=== PATIENT | male | born 2000 | race Caucasian/White ===

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

== ENCOUNTER 2022-01-16 07:22 | Emergency (ER) | payer BC, SELFPAY ==
[2022-01-16 07:58] VITALS: BP 126/85; PULSE 77; RESP 20; TEMP 36.8; O2SAT 100; BMI 23.1
--- NOTE | 2022-01-16 08:02 | US_ITS ---
FINAL REPORT TECHNIQUE: Ultrasound images of the testicles were obtained bilaterally. Color Doppler images were obtained. CLINICAL HISTORY: sudden right testicle pain. r/o torsion--pt has a bump om base of penis FINDINGS: The testicles are normal in size and echotexture bilaterally. Arterial flow is identified bilaterally. There is a right epididymal cyst measuring 5 mm. A complex, hypoechoic focus is seen at the area of interest measuring 5 mm of uncertain significance. IMPRESSION: 5 mm right epididymal cyst. 5 mm, complex hypoechoic focus at base of penis, of uncertain significance. Reviewed, Interpreted and Dictated by Avery Ibarra MD Transcribed by Isatu Carrilol Authenticated and [facility]
[2022-01-16 08:15] LABS: Microscopic, Urine URINE MICROSCOPIC (MICROSCOPIC)
[2022-01-16 08:16] LABS: Appearance,Urine CLEAR (Clear); Bilirubin,Urine Negative (Negative); Blood, Urine 1+ (Negative); Color,Urine YELLOW (Yellow); Glucose,Urine (UA) Negative (Negative); Ketones,Urine Negative (Negative); Leukocyte Esterase,Urine Negative (Negative); Nitrate,Urine Negative (Negative); PH,Urine 5.5 (5.0-8.5); Protein,Urine Negative (Negative); Specific Gravity, Urine >= 1.030 (1.005-1.030); Urobilinogen,Urine 0.2 EU/dl (0.2)
[2022-01-16 08:28] LABS: Bacteria,Urine Trace /lpf; RBC,Urine Occasional #/hpf (0-3); Squamous Epithelial Cell,Urine Occasional #/hpf (0-5)
--- NOTE | 2022-01-16 08:41 | PC.NURSE ---
REPORT GIVEN TO DR FOSS REGARDING US
[2022-01-16 08:45] VITALS: BP 119/85; PULSE 78; RESP 17; TEMP 36.8; O2SAT 98
--- NOTE | 2022-01-16 09:12 | HMH.EDGENADL ---
Discharge Plan Disposition Patient Disposition: Home, Self-Care Condition: Good Prescriptions Prescriptions: New doxycycline hyclate 100 mg capsule 100 mg PO BID 14 Days Qty: 28 0RF hydrocodone-acetaminophen 5-325 mg tablet 1 tab PO Q4H PRN (Reason: pain) Qty: 7 0RF doxycycline hyclate 100 mg tablet 100 mg PO BID 14 Days Qty: 28 0RF No Action ibuprofen [Advil] 100 mg tablet 200 mg PO ONCE cephalexin [Keflex] 500 mg capsule 500 mg PO QDAY amoxicillin 500 MG capsule 500 mg PO BID Qty: 20 0RF Referrals Follow up/Referrals: Provider,Referral, MD [Primary Care Provider] - See instructions Activity Restrictions/Add. Instructions Additional Instructions/Restrictions: Apply warm compresses to the affected area 5-6 times daily. Rest. No work for the next 3 days. Clinical Impressions Clinical Impression: Folliculitis Stand Alone Forms Stand Alone Forms: Work/School Release Instructions Patient Instructions: DI for Urinary Tract Infection (UTI), DI for Urinary Tract Infection in Children Discharge ED Provider: Alex Cox General Adult HPI General Chief complaint: Urogenital-Male Stated complaint: Having Gentaltive problems Time Seen by Provider: 01/16/22 09:00 Mode of Arrival: Ambulatory Source of Information: Patient Limitations: No Limitations Description of Symptoms (Recalled from ER Triage Doc. by RN): pt c/o right testicular pain. pt reports he was walking at work and had a sudden onset of testicular pain. pt reports he has a knot on the right testicle. pt reports the pain is localized. History of Present Illness HPI narrative: Patient presents with pain and swelling to the shaft of the penis that began earlier this morning. He describes the pain as moderate to severe and without exacerbating or alleviating factors. He denies fever he denies drainage from the penis. He denies similar symptoms. Related Data Home Medications Medication Instructions Recorded Confirmed cephalexin 500 mg capsule (Keflex) 500 mg PO QDAY 03/22/17 ibuprofen 100 mg tablet (Advil) 200 mg PO ONCE 03/22/17 Previous Rx's Medication Instructions Recorded amoxicillin 500 mg capsule 500 mg PO BID #20 caps 03/26/17 doxycycline hyclate 100 mg capsule 100 mg PO BID 14 days #28 caps 01/16/22 doxycycline hyclate 100 mg tablet 100 mg PO BID 14 days #28 tabs 01/16/22 hydrocodone 5 mg-acetaminophen 325 1 tab PO Q4H PRN pain #7 tabs 01/16/22 mg tablet Allergies Allergy/AdvReac Type Severity Reaction Status Date / Time No Known Allergies [facility]26[facility]17 [facility] History Smoking Status: Never smoker alcohol intake: never counseling provided: none current occupational status: employed Travel in the last 8 weeks: None ROS Obtained: Yes All systems reviewed & no additional complaints except as documented Constitutional Constitutional: Reports system reviewed and no additional complaints, except as documented Physical Exam General General appearance: alert and in no apparent distress Head Head exam: atraumatic Eye Eye exam: Present normal appearance ENT ENT exam: Present normal exam Neck Neck exam: Present normal inspection Chest Chest inspection: Present normal inspection Respiratory Respiratory exam: Present normal lung sounds bilaterally Cardiovascular Cardiovascular exam: Present regular rate and normal rhythm Abdominal Exam Abdominal exam: Present soft; Absent tenderness exam: Present other (To the shaft of the penis there is a 3 mm raised lesion on an erythematous base that is approximately 1 cm diameter. Lesion is mildly to moderately tender there is no fluctuance. There is no active drainage at this time. Scrotum and testicular exams unremarkable and there are no appreciable herni) Extremities Exam Extremities exam: Present normal inspection Back Exam Back exam: Present normal inspection Neurological Exam Neurological
[2022-01-16 09:20] VITALS: BP 124/77; PULSE 80; RESP 20; TEMP 36.8; O2SAT 99
== END 2022-01-16 09:21 | disposition home or self-care (01) ==
PROVIDERS: Emergency Provider Emergency Medicine
DX: N50.811 Right testicular pain (principal); N48.89 Other specified disorders of penis; L73.9 Follicular disorder, unspecified; F41.9 Anxiety disorder, unspecified; Z79.1 Long term (current) use of non-steroidal anti-inflammatories (NSAID); Z79.51 Long term (current) use of inhaled steroids; Z79.899 Other long term (current) drug therapy
CPT/HCPCS: 76870; 81001; 99284

== ENCOUNTER 2022-01-24 09:47 | Emergency (ER) | payer BC, SELFPAY ==
[2022-01-24 09:50] VITALS: BP 129/71; PULSE 67; RESP 16; TEMP 37.1; O2SAT 98; BMI 25.0
[2022-01-24 10:00] VITALS: BP 129/71; PULSE 67; RESP 16; TEMP 37.1; O2SAT 98; BMI 24.8
--- NOTE | 2022-01-24 10:25 | EXP.UTC ---
Discharge Plan Disposition Patient Disposition: Home, Self-Care Condition: Good Prescriptions Prescriptions: New cefdinir 300 mg capsule 300 mg PO BID Qty: 20 0RF methylprednisolone [Medrol (Adriano)] 4 mg tablets,dose pack See Rx Instructions .Route .COMPLEX 6 Days Qty: 21 0RF Rx Instructions: taper pack; No Action ibuprofen [Advil] 100 mg tablet 200 mg PO ONCE cephalexin [Keflex] 500 mg capsule 500 mg PO QDAY amoxicillin 500 MG capsule 500 mg PO BID Qty: 20 0RF doxycycline hyclate 100 mg capsule 100 mg PO BID 14 Days Qty: 28 0RF hydrocodone-acetaminophen 5-325 mg tablet 1 tab PO Q4H PRN (Reason: pain) Qty: 7 0RF doxycycline hyclate 100 mg tablet 100 mg PO BID 14 Days Qty: 28 0RF Referrals Follow up/Referrals: Provider,Referral, MD [Primary Care Provider] - See instructions Activity Restrictions/Add. Instructions Additional Instructions/Restrictions: *Monitor Temp, Over the counter Motrin or Tylenol as directed/as needed Tylenol every 4 hours and Motrin every 6 hours (as long as your family doctor has told you that you can take it) for fever or pain. and straight to ER if unable to lower temp less than 101.0 after medication given *Warm salt water gargles may help to soothe the throat *Throat Lozenges? *Warm fluids like tea with honey may help to soothe the throat? *Sleep elevated *Humidifier/Vaporizer *If you did not take Penicillin shot or was unable to, start taking antibiotic immediately and make sure that you take it for the FULL length of time although you should start to feel better in 24-48 hours *change toothbrush and toothpaste 24-48 hours after starting to take antibiotics so you do not reinfect yourself Monitor Temp. Tylenol and/or Ibuprofen as needed. ER if fever is no less than 101 despite alternating Tylenol and Ibuprofen * Encourage fluids, water, Gatorade, powerade, pedialyte if /toddler/or child *Cold fluids, popsicles and ice cream may feel good on his throat Follow up IMMEDIATELY for new or worsening symptoms or no Noticeable improvement over the next 48-72 hours. 911 for difficulty breathing or swallowing start oral steriods tomorrow for itching but antibitoics for the strep throat the rash should clear once the strep infection is treated Make sure to finish your antibiotics Clinical Impressions Clinical Impression: Strep throat Instructions Patient Instructions: Strep Throat, DI for Strep Throat Discharge ED Provider: Dianne Hurt [facility] [place] HPI General Stated complaint: rash on Rt side, back, and Rt arm Mode of Arrival: Ambulatory Source of Information: Patient Limitations: No Limitations Time Seen by Provider: 01/24/22 10:25 Description of Symptoms (Recalled from Triage Doc. by RN): Pt reports rash that began on R side of abd/rib area that began yesterday afternoon, pt reports rash has now spread to back. Pt report rash itches constantly. Pt reports rash hartley when it is touches. Rash is red in color, fine raised areas. 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
[2022-01-24 10:40] LABS: UTC Strep Screen (Rapid) Positive (Negative)
[2022-01-24 10:52] VITALS: BP 129/71; PULSE 67; RESP 16; TEMP 37.1; O2SAT 98
== END 2022-01-24 11:16 | disposition home or self-care (01) ==
PROVIDERS: Emergency Provider Nurse Practitioner
DX: J02.0 Streptococcal pharyngitis (principal)
CPT/HCPCS: 99212; 87880

== ENCOUNTER 2022-03-01 18:34 | Emergency (ER) | payer BC, SELFPAY ==
[2022-03-01 18:53] VITALS: BP 147/85; PULSE 136; RESP 18; TEMP 37.2; O2SAT 95; BMI 35.4
[2022-03-01 19:55] VITALS: BP 126/74; PULSE 123; RESP 16; TEMP 37.4; O2SAT 99; BMI 20.7
--- NOTE | 2022-03-01 20:21 | EXP.UTC ---
Discharge Plan Disposition Patient Disposition: Home, Self-Care Condition: Good Prescriptions Prescriptions: New wbhqkytuccrefui-opwxubiih-UY [Bromfed DM] 2-30-10 mg/5 mL Syrup 10 ml PO Q4H PRN (Reason: Cough) Qty: 240 0RF ibuprofen 600 mg tablet 600 mg PO Q6HP PRN (Reason: Moderate Pain) Qty: 20 0RF ondansetron 4 mg tablet,disintegrating 4 mg PO Q8H PRN (Reason: nausea and vomiting) Qty: 10 0RF No Action ibuprofen [Advil] 100 mg tablet 200 mg PO ONCE cephalexin [Keflex] 500 mg capsule 500 mg PO QDAY amoxicillin 500 MG capsule 500 mg PO BID Qty: 20 0RF doxycycline hyclate 100 mg capsule 100 mg PO BID 14 Days Qty: 28 0RF hydrocodone-acetaminophen 5-325 mg tablet 1 tab PO Q4H PRN (Reason: pain) Qty: 7 0RF doxycycline hyclate 100 mg tablet 100 mg PO BID 14 Days Qty: 28 0RF cefdinir 300 mg capsule 300 mg PO BID Qty: 20 0RF methylprednisolone [Medrol (Adriano)] 4 mg tablets,dose pack See Rx Instructions .Route .COMPLEX 6 Days Qty: 21 0RF Rx Instructions: taper pack; Referrals Follow up/Referrals: Provider,Referral, MD [Primary Care Provider] - See instructions Activity Restrictions/Add. Instructions Additional Instructions/Restrictions: *Monitor Temp, Over the counter Motrin or Tylenol as directed/as needed Tylenol every 4 hours and Motrin every 6 hours (as long as your family doctor has told you that you can take it) for fever or pain. and straight to ER if unable to lower temp less than 101.0 after medication given *Warm salt water gargles may help to soothe the throat *Throat Lozenges? *Warm fluids like tea with honey may help to soothe the throat? *Sleep elevated *Humidifier/Vaporizer *Bromfed may cause drowsiness. Know how it effects you (your child) before driving, caring for small child, or sending your child to school. Not other antihistamines/allergy medications while taking bromfed Follow up IMMEDIATELY for new or worsening symptoms or no Noticeable improvement over the next 48-72 hours. 911 for difficulty breathing or swallowing You were tested for today for COVID19 your test result should be back in the next 24-48 hours, you may check your Results on the [facility] My Health Portal Clinical Impressions Clinical Impression: Viral syndrome Stand Alone Forms Stand Alone Forms: Work/School Release Instructions Patient Instructions: DI for Fever (Symptom) -- Adult, DI for Viral Syndrome, Nausea and Vomiting-Adult, Diarrhea Discharge ED [place] [facility] [place] General Stated complaint: BODY ACHES, NA, cant keepanything down Mode of Arrival: Ambulatory Source of Information: Patient Limitations: No Limitations Time Seen by Provider: 03/01/22 20:21 Description of Symptoms (Recalled from Triage Doc. by RN): PATIENT C/O VOMITING, DIARRHEA, CHILLS, BODY ACHES, HEADACHE, NAUSEA AND SNEEZING HEENT Symptoms (Recalled from RN notes): Yes Resp Symptoms (Recalled from RN notes): No Skin Symptoms (Recalled from RN notes): No MS Symptoms (Recalled from RN notes): No Functional Status (Recalled from RN notes): WNL History of Present Illness Provider Complaint: Patient states that he was recently around his brother that has the flu States that he has been having fever, chills, bodyaches, nausea/vomiting/diarrhea and sneezing States that feels like he may have the flu Related Data Home Medications Medication Instructions Recorded Confirmed cephalexin 500 mg capsule (Keflex) 500 mg PO QDAY 03/22/17 ibuprofen 100 mg tablet (Advil) 200 mg PO ONCE 03/22/17 Previous Rx's Medication Instructions Recorded amoxicillin 500 mg capsule 500 mg PO BID #20 caps 03/26/17 doxycycline hyclate 100 mg capsule 100 mg PO BID 14 days #28 caps 01/16/22 doxycycline hyclate 100 mg tablet 100 mg PO BID 14 days #28 tabs 01/16/22 hydrocodone 5 mg-acetaminophen 325 1 tab PO Q4H PRN pain #7 tabs 01/16/22 mg tablet cefdinir 300 mg capsu
[2022-03-01 20:38] VITALS: BP 126/74; PULSE 123; RESP 16; TEMP 37.4; O2SAT 99
[2022-03-02 18:49] LABS: UTC Influenza A Antigen Negative (Negative); UTC Influenza B Antigen Negative (Negative)
== END 2022-03-01 20:50 | disposition home or self-care (01) ==
LOC: ER 18:54 → UTC 18:57
PROVIDERS: Emergency Provider Nurse Practitioner
DX: R52 Pain, unspecified (principal); R11.2 Nausea with vomiting, unspecified; R51.9 Headache, unspecified; B34.9 Viral infection, unspecified
CPT/HCPCS: 87804; 99212; G0463

== ENCOUNTER 2022-04-06 12:39 | Emergency (ER) | payer BC, SELFPAY ==
--- NOTE | 2022-04-06 13:13 | EXP.UTC ---
Discharge Plan Disposition Patient Disposition: Home, Self-Care Condition: Good Prescriptions Prescriptions: New methylprednisolone 4 mg Tablets,Dose Pack 4 mg PO DIRECTED Qty: 21 0RF hzxjvhxmgkqfzus-lkbfpanst-RK [Bromfed DM] 2-30-10 mg/5 mL Syrup 5 ml PO Q6H PRN (Reason: Cough) Qty: 240 0RF amoxicillin-pot clavulanate 875-125 mg Tablet 1 tab PO Q12H Qty: 20 0RF No Action ibuprofen [Advil] 100 mg tablet 200 mg PO ONCE cephalexin [Keflex] 500 mg capsule 500 mg PO QDAY amoxicillin 500 MG capsule 500 mg PO BID Qty: 20 0RF doxycycline hyclate 100 mg capsule 100 mg PO BID 14 Days Qty: 28 0RF hydrocodone-acetaminophen 5-325 mg tablet 1 tab PO Q4H PRN (Reason: pain) Qty: 7 0RF doxycycline hyclate 100 mg tablet 100 mg PO BID 14 Days Qty: 28 0RF cefdinir 300 mg capsule 300 mg PO BID Qty: 20 0RF methylprednisolone [Medrol (Adriano)] 4 mg tablets,dose pack See Rx Instructions .Route .COMPLEX 6 Days Qty: 21 0RF Rx Instructions: taper pack; zwkbnzihcnzhead-yflrobzoc-PQ [Bromfed DM] 2-30-10 mg/5 mL Syrup 10 ml PO Q4H PRN (Reason: Cough) Qty: 240 0RF ibuprofen 600 mg tablet 600 mg PO Q6HP PRN (Reason: Moderate Pain) Qty: 20 0RF ondansetron 4 mg tablet,disintegrating 4 mg PO Q8H PRN (Reason: nausea and vomiting) Qty: 10 0RF Referrals Follow up/Referrals: Provider,Referral, MD [Primary Care Provider] - See instructions Activity Restrictions/Add. Instructions Additional Instructions/Restrictions: Drink plenty of fluids. Take tylenol or ibuprofen for pain or fever. Take the medications as directed. Follow up with your regular doctor. GO TO THE ER FOR ANY WORSENING SYMPTOMS Clinical Impressions Clinical Impression: Pharyngitis, Bronchitis Stand Alone Forms Stand Alone Forms: Work/School Release Instructions Patient Instructions: DI for Pharyngitis/Tonsillopharyngitis -- Adult, DI for Acute Bronchitis Discharge ED Provider: Og Dickens [facility] General Stated complaint: Wheezing in chest sore throat Time Seen by Provider: 04/06/22 13:13 History of Present Illness Provider Complaint: He states that for the past 2 days he has had a very sore throat and chest congestion. He has had some wheezing also. He does have a history of asthma. He denies shortness of breath. Related Data Home Medications Medication Instructions Recorded Confirmed cephalexin 500 mg capsule (Keflex) 500 mg PO QDAY 03/22/17 ibuprofen 100 mg tablet (Advil) 200 mg PO ONCE 03/22/17 Previous Rx's Medication Instructions Recorded amoxicillin 500 mg capsule 500 mg PO BID #20 caps 03/26/17 doxycycline hyclate 100 mg capsule 100 mg PO BID 14 days #28 caps 01/16/22 doxycycline hyclate 100 mg tablet 100 mg PO BID 14 days #28 tabs 01/16/22 hydrocodone 5 mg-acetaminophen 325 1 tab PO Q4H PRN pain #7 tabs 01/16/22 mg tablet cefdinir 300 mg capsule 300 mg PO BID #20 caps 01/24/22 methylprednisolone 4 mg tablets in See Rx Instructions .Route 01/24/22 a dose pack (Medrol (Adriano)) .COMPLEX 6 days #21 tabs gjqsrfwfcyarlsq-mswlizcdahlhsdf-SW 10 ml PO Q4H PRN Cough #240 mL 03/01/22 2 mg-30 mg-10 mg/5 mL oral syrup (Bromfed DM) ibuprofen 600 mg tablet 600 mg PO Q6HP PRN Moderate Pain 03/01/22 #20 tabs ondansetron 4 mg disintegrating 4 mg PO Q8H PRN nausea and 03/01/22 tablet vomiting #10 tabs amoxicillin 875 mg-potassium 1 tab PO Q12H #20 tabs 04/06/22 clavulanate 125 mg tablet ooalrhldtafjvcj-hgigltwwropyikh-EQ 5 ml PO Q6H PRN Cough #240 mL 04/06/22 2 mg-30 mg-10 mg/5 mL oral syrup (Bromfed DM) methylprednisolone 4 mg tablets in 4 mg PO DIRECTED #21 tabs 04/06/22 a dose pack Allergies Allergy/AdvReac Type Severity Reaction Status Date / Time No Known Allergies Allergy Verified 04/06/22 13:24 PFSH PFS Disclaimer: The information contained in this section may have been updated after the patient was seen, as this infor
[2022-04-06 13:15] VITALS: BP 141/86; PULSE 96; RESP 20; TEMP 36.8; O2SAT 97; BMI 20.9
[2022-04-06 13:34] LABS: UTC Strep Screen (Rapid) Negative (Negative)
[2022-04-06 14:23] VITALS: BP 141/86; PULSE 96; RESP 20; TEMP 36.8; O2SAT 97
== END 2022-04-06 14:22 | disposition home or self-care (01) ==
PROVIDERS: Emergency Provider Nurse Practitioner Family
DX: J40 Bronchitis, not specified as acute or chronic (principal); J02.9 Acute pharyngitis, unspecified
CPT/HCPCS: 87880; 99212; 99213; C9803; G0463; U0003; U0005

== ENCOUNTER 2022-05-13 21:11 | Emergency (ER) | payer SELFPAY ==
[2022-05-13 21:13] VITALS: BP 166/87; PULSE 78; RESP 17; TEMP 37.1; O2SAT 98; BMI 27.1
--- NOTE | 2022-05-13 21:48 | HMH.EDEAR ---
Discharge Plan Disposition Patient Disposition: Home, Self-Care Prescriptions Prescriptions: New prednisone [prednisone] 20 mg tablet 20 mg PO BID Qty: 10 0RF cephalexin [cephalexin] 500 mg capsule 500 mg PO TID Qty: 30 0RF No Action ibuprofen [Advil] 100 mg tablet 200 mg PO ONCE cephalexin [Keflex] 500 mg capsule 500 mg PO QDAY amoxicillin 500 MG capsule 500 mg PO BID Qty: 20 0RF doxycycline hyclate 100 mg capsule 100 mg PO BID 14 Days Qty: 28 0RF hydrocodone-acetaminophen 5-325 mg tablet 1 tab PO Q4H PRN (Reason: pain) Qty: 7 0RF doxycycline hyclate 100 mg tablet 100 mg PO BID 14 Days Qty: 28 0RF methylprednisolone 4 mg Tablets,Dose Pack 4 mg PO DIRECTED Qty: 21 0RF smvicvubtqtmtoh-wthscfomt-JK [Bromfed DM] 2-30-10 mg/5 mL Syrup 5 ml PO Q6H PRN (Reason: Cough) Qty: 240 0RF amoxicillin-pot clavulanate 875-125 mg Tablet 1 tab PO Q12H Qty: 20 0RF cefdinir 300 mg capsule 300 mg PO BID Qty: 20 0RF methylprednisolone [Medrol (Adriano)] 4 mg tablets,dose pack See Rx Instructions .Route .COMPLEX 6 Days Qty: 21 0RF Rx Instructions: taper pack; zyazgjicoeymbkh-nwjypycti-IP [Bromfed DM] 2-30-10 mg/5 mL Syrup 10 ml PO Q4H PRN (Reason: Cough) Qty: 240 0RF ibuprofen 600 mg tablet 600 mg PO Q6HP PRN (Reason: Moderate Pain) Qty: 20 0RF ondansetron 4 mg tablet,disintegrating 4 mg PO Q8H PRN (Reason: nausea and vomiting) Qty: 10 0RF Referrals Follow up/Referrals: Provider,Referral, MD [Primary Care Provider] - See instructions Clinical Impressions Clinical Impression: Otitis media Instructions Patient Instructions: DI for Ear Pain-Adult Discharge ED Provider: Prasanth (ED)Nick Ear HPI General Chief complaint: Ear Stated complaint: Ear Pain Time Seen by Provider: 05/13/22 21:48 Mode of Arrival: Ambulatory Source of Information: Patient and Significant Other Limitations: No Limitations Description of Symptoms (Recalled from ER Triage Doc. by RN): PT TO ED WITH LEFT EAR PAIN SINCE EARLIER TONIGHT. PT REPORTS THAT HIS EARS CLOG UP AND HE CLEARS THEM BY MAKING THEM POP MULTIPLE TIMES A DAY X 3 MONTHS BY HOLDING HIS NOSE AND BLOWING OUT UNTIL THEY POP. PT REPORTS THIS AFTERNOON HE FELT A POP AND PAIN LOUDER THAN USUAL WITH INTENSE PAIN History of Present Illness HPI Narrative: ear pain with pop and has full feeling over the last months MD Complaint: ear pain Location: left ear Duration: intermittent Severity: moderate Discharge from ear: no Associated symptoms ear: decreased hearing Treatment prior to arrival: none Related Data Home Medications Medication Instructions Recorded Confirmed cephalexin 500 mg capsule (Keflex) 500 mg PO QDAY 03/22/17 ibuprofen 100 mg tablet (Advil) 200 mg PO ONCE 03/22/17 Previous Rx's Medication Instructions Recorded amoxicillin 500 mg capsule 500 mg PO BID #20 caps 03/26/17 doxycycline hyclate 100 mg capsule 100 mg PO BID 14 days #28 caps 01/16/22 doxycycline hyclate 100 mg tablet 100 mg PO BID 14 days #28 tabs 01/16/22 hydrocodone 5 mg-acetaminophen 325 1 tab PO Q4H PRN pain #7 tabs 01/16/22 mg tablet cefdinir 300 mg capsule 300 mg PO BID #20 caps 01/24/22 methylprednisolone 4 mg tablets in See Rx Instructions .Route 01/24/22 a dose pack (Medrol (Adriano)) .COMPLEX 6 days #21 tabs qedrnzcqfveibwo-bjnsdlopsctsqur-VI 10 ml PO Q4H PRN Cough #240 mL 03/01/22 2 mg-30 mg-10 mg/5 mL oral syrup (Bromfed DM) ibuprofen 600 mg tablet 600 mg PO Q6HP PRN Moderate Pain 03/01/22 #20 tabs ondansetron 4 mg disintegrating 4 mg PO Q8H PRN nausea and 03/01/22 tablet vomiting #10 tabs amoxicillin 875 mg-potassium 1 tab PO Q12H #20 tabs 04/06/22 clavulanate 125 mg tablet clejbbqcusfwunb-xztzhnoarcdnsar-SY 5 ml PO Q6H PRN Cough #240 mL 04/06/22 2 mg-30 mg-10 mg/5 mL oral syrup (Bromfed DM) methylprednisolone 4 mg tablets in 4 mg PO DIRECTED #21 tabs 04/06/22 a dose pack cephalex
[2022-05-13 21:58] VITALS: BP 157/79; PULSE 78; RESP 17; TEMP 36.9; O2SAT 98
== END 2022-05-13 21:59 | disposition home or self-care (01) ==
PROVIDERS: Emergency Provider Emergency Medicine
DX: H66.92 Otitis media, unspecified, left ear (principal); F41.9 Anxiety disorder, unspecified
CPT/HCPCS: 99283; 99284

== ENCOUNTER 2022-05-16 15:51 | Emergency (ER) | payer SELFPAY ==
[2022-05-16 16:04] VITALS: BP 139/81; PULSE 90; RESP 14; TEMP 36.6; O2SAT 100; BMI 27.6
--- NOTE | 2022-05-16 16:16 | HMH.EDGENADL ---
Discharge Plan Disposition Patient Disposition: Home, Self-Care Condition: Good Prescriptions Prescriptions: New ondansetron 4 mg tablet,disintegrating 4 mg PO Q8H 4 Days Qty: 12 0RF No Action ibuprofen [Advil] 100 mg tablet 200 mg PO ONCE cephalexin [Keflex] 500 mg capsule 500 mg PO QDAY amoxicillin 500 MG capsule 500 mg PO BID Qty: 20 0RF doxycycline hyclate 100 mg capsule 100 mg PO BID 14 Days Qty: 28 0RF hydrocodone-acetaminophen 5-325 mg tablet 1 tab PO Q4H PRN (Reason: pain) Qty: 7 0RF doxycycline hyclate 100 mg tablet 100 mg PO BID 14 Days Qty: 28 0RF methylprednisolone 4 mg Tablets,Dose Pack 4 mg PO DIRECTED Qty: 21 0RF czbktatrhmgcmil-mofpaplgq-JF [Bromfed DM] 2-30-10 mg/5 mL Syrup 5 ml PO Q6H PRN (Reason: Cough) Qty: 240 0RF amoxicillin-pot clavulanate 875-125 mg Tablet 1 tab PO Q12H Qty: 20 0RF prednisone [prednisone] 20 mg tablet 20 mg PO BID Qty: 10 0RF cephalexin [cephalexin] 500 mg capsule 500 mg PO TID Qty: 30 0RF cefdinir 300 mg capsule 300 mg PO BID Qty: 20 0RF methylprednisolone [Medrol (Adriano)] 4 mg tablets,dose pack See Rx Instructions .Route .COMPLEX 6 Days Qty: 21 0RF Rx Instructions: taper pack; ryytnzwsmlqlyge-xdrknclyr-GG [Bromfed DM] 2-30-10 mg/5 mL Syrup 10 ml PO Q4H PRN (Reason: Cough) Qty: 240 0RF ibuprofen 600 mg tablet 600 mg PO Q6HP PRN (Reason: Moderate Pain) Qty: 20 0RF ondansetron 4 mg tablet,disintegrating 4 mg PO Q8H PRN (Reason: nausea and vomiting) Qty: 10 0RF Clinical Impressions Clinical Impression: Vomiting and diarrhea Instructions Patient Instructions: DI for Diarrhea and Traveler's Diarrhea -- Adult, DI for Diarrhea and Traveler's Diarrhea -- Child, DI for Nausea -- Adult, DI for Nausea -- Child Discharge ED Provider: Alex Rubin General Adult [facility] General Chief complaint: Nausea/Vomiting/Diarrhea Stated complaint: Abd Pain V&D,Back Pain Time Seen by Provider: 05/16/22 15:59 Mode of Arrival: Ambulatory Source of Information: Patient Limitations: No Limitations Description of Symptoms (Recalled from ER Triage Doc. by RN): Pt c/o awakening this am w diarrhea, nausea, vomiting, stomach pain indicating LLQ, dysuria; reports another friend who ate same supper last PM also sick; NAD History of Present Illness HPI narrative: This is an otherwise healthy 22-year-old male presenting with vomiting and diarrhea. Patient states that he began having nonbloody, nonbilious vomiting today, 3/ earlier in the morning. Household contacts with similar symptoms. He developed diarrhea after that as well with diffuse, mild, cramping abdominal pain that does not radiate. Diarrhea is nonbloody, watery, profuse. He was trying to hydrate at home, but feels he has been unable to keep up with the vomiting and diarrhea, so came to the ER for further evaluation. Denies fevers, flank pain, dysuria, hematuria, or any other concerns. Related Data Home Medications Medication Instructions Recorded Confirmed cephalexin 500 mg capsule (Keflex) 500 mg PO QDAY 03/22/17 ibuprofen 100 mg tablet (Advil) 200 mg PO ONCE 03/22/17 Previous Rx's Medication Instructions Recorded amoxicillin 500 mg capsule 500 mg PO BID #20 caps 03/26/17 doxycycline hyclate 100 mg capsule 100 mg PO BID 14 days #28 caps 01/16/22 doxycycline hyclate 100 mg tablet 100 mg PO BID 14 days #28 tabs 01/16/22 hydrocodone 5 mg-acetaminophen 325 1 tab PO Q4H PRN pain #7 tabs 01/16/22 mg tablet cefdinir 300 mg capsule 300 mg PO BID #20 caps 01/24/22 methylprednisolone 4 mg tablets in See Rx Instructions .Route 01/24/22 a dose pack (Medrol (Adriano)) .COMPLEX 6 days #21 tabs lzymmvvtrerozdl-nuipjngrbsqdvtn-XE 10 ml PO Q4H PRN Cough #240 mL 03/01/22 2 mg-30 mg-10 mg/5 mL oral syrup (Bromfed DM) ibuprofen 600 mg tablet 600 mg PO Q6HP PRN Moderate Pain 03/01/22 #20 tabs ondansetron 4 mg disintegrating 4 mg PO Q8H P
[2022-05-16 16:30] VITALS: BP 131/76; PULSE 82; O2SAT 98
[2022-05-16 16:31] LABS: Chloride 99 mmol/L (98-107)
[2022-05-16 16:32] LABS: Potassium 3.8 mmoL/L (3.5-5.1); Sodium 140 mmol/L (136-145)
[2022-05-16 16:35] LABS: Anion Gap 14.8 mEq/L (5-15); Blood Urea Nitrogen 23 mg/dl (9-20); Calcium 9.9 mg/dl (8.4-10.2); Carbon Dioxide 30 mmol/L (22.0-30.0); Creatinine Clearance Estimated 158 mL/min (50-200); Estimated Glomerular Filt Rate 93 ml/min (>60); GFR (African American) 112 ML/MIN (>60); Glucose 91 mg/dl (74-100)
[2022-05-16 17:39] VITALS: BP 123/77; PULSE 74; RESP 16; TEMP 36.8; O2SAT 99
== END 2022-05-16 17:47 | disposition home or self-care (01) ==
PROVIDERS: Emergency Provider Emergency Medicine
DX: R11.2 Nausea with vomiting, unspecified (principal); R19.7 Diarrhea, unspecified; R10.32 Left lower quadrant pain; F41.9 Anxiety disorder, unspecified; F17.210 Nicotine dependence, cigarettes, uncomplicated
CPT/HCPCS: 80048; 96361; 96374; 99284; J2405

== ENCOUNTER 2022-06-30 01:37 | Emergency (ER) | payer SELFPAY ==
[2022-06-30 01:38] VITALS: BP 129/80; PULSE 84; RESP 17; TEMP 36.8; O2SAT 99; BMI 22.3
--- NOTE | 2022-06-30 02:03 | HMH.EDSKAF ---
Discharge Plan Disposition Patient Disposition: Home, Self-Care Condition: Good Prescriptions Prescriptions: New ibuprofen 600 mg tablet 600 mg PO Q6H PRN (Reason: pain) Qty: 40 0RF acetaminophen [Tylenol 8 Hour] 650 mg tablet extended release 650 mg PO Q8H PRN (Reason: fever or pain) Qty: 30 0RF No Action ibuprofen [Advil] 100 mg tablet 200 mg PO ONCE cephalexin [Keflex] 500 mg capsule 500 mg PO QDAY amoxicillin 500 MG capsule 500 mg PO BID Qty: 20 0RF doxycycline hyclate 100 mg capsule 100 mg PO BID 14 Days Qty: 28 0RF hydrocodone-acetaminophen 5-325 mg tablet 1 tab PO Q4H PRN (Reason: pain) Qty: 7 0RF doxycycline hyclate 100 mg tablet 100 mg PO BID 14 Days Qty: 28 0RF methylprednisolone 4 mg Tablets,Dose Pack 4 mg PO DIRECTED Qty: 21 0RF itjwgbgqqsmmvyn-scspjketw-GG [Bromfed DM] 2-30-10 mg/5 mL Syrup 5 ml PO Q6H PRN (Reason: Cough) Qty: 240 0RF amoxicillin-pot clavulanate 875-125 mg Tablet 1 tab PO Q12H Qty: 20 0RF prednisone [prednisone] 20 mg tablet 20 mg PO BID Qty: 10 0RF cephalexin [cephalexin] 500 mg capsule 500 mg PO TID Qty: 30 0RF cefdinir 300 mg capsule 300 mg PO BID Qty: 20 0RF methylprednisolone [Medrol (Adriano)] 4 mg tablets,dose pack See Rx Instructions .Route .COMPLEX 6 Days Qty: 21 0RF Rx Instructions: taper pack; petwaajfikyfrcg-vdvavcony-UG [Bromfed DM] 2-30-10 mg/5 mL Syrup 10 ml PO Q4H PRN (Reason: Cough) Qty: 240 0RF ibuprofen 600 mg tablet 600 mg PO Q6HP PRN (Reason: Moderate Pain) Qty: 20 0RF ondansetron 4 mg tablet,disintegrating 4 mg PO Q8H PRN (Reason: nausea and vomiting) Qty: 10 0RF ondansetron 4 mg tablet,disintegrating 4 mg PO Q8H 4 Days Qty: 12 0RF Referrals Follow up/Referrals: Provider,Referral, MD [Primary Care Provider] - See instructions Activity Restrictions/Add. Instructions Additional Instructions/Restrictions: Keep the burn area dressed at all times. Put the Silvadene cream on twice a day. I am writing for some Tylenol and ibuprofen for pain. You are getting a tetanus shot remember 2022. No using the right arm at work. Return to ER symptoms worsen. Follow the primary doctor for follow up. Clinical Impressions Clinical Impression: Second degree burn Discharge ED Provider: Mai Bear Skin/Abscess/FB HPI General Stated complaint: Burn on right wrist, throbbing Time Seen by Provider: 06/30/22 01:49 Mode of Arrival: Ambulatory Source of Information: Patient Limitations: No Limitations History of Present Illness HPI narrative: Patient is a 22 male who is here secondary to right wrist burn. He was working at a [employer] and he got bumped by another coworker and burned his left wrist on a hot object. 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 There is a blister there and is causing significant amount of pain. Tetanus shot is unknown. Patient has pain with movement of the right wrist. No pain or discomfort in the hand or fingers. MD complaint: rash Onset (ago): minute(s) Tetanus up to date: unsure Location: RUE Severity: moderate Severity scale (1-10): 8 Quality: burning and dull Consistency: constant Relieving factors: none Exacerbating factors: none Context: none Associated symptoms: denies other symptoms Treatments prior to arrival: none Related Data Home Medications Medication Instructions Recorded Confirmed cephalexin 500 mg capsule (Keflex) 500 mg PO QDAY 03/22/17 ibuprofen 100 mg tablet (Advil) 200 mg PO ONCE 03/22/17 Previous Rx's Medication Instructions Recorded amoxicillin 500 mg capsule 500 mg PO BID #20 caps 03/26/17 doxycycline hyclate 100 mg capsule 100 mg PO BID 14 days #28 caps 01/16/22 doxycycline hyclate 100 mg tablet 100 mg PO BID 14 days #28 tabs 01/16/22 hydrocodone 5 mg-acetaminophen 325 1 tab PO Q4H PRN pain #7 tabs 01/16/22 mg tablet cefdinir 300 mg capsule 300 mg PO BID #20 caps 1
[2022-06-30 02:17] VITALS: BP 130/80; PULSE 74; RESP 20; TEMP 36.8
== END 2022-06-30 02:18 | disposition home or self-care (01) ==
PROVIDERS: Emergency Provider Emergency Medicine
DX: T23.271A Burn of second degree of right wrist, initial encounter (principal); F17.200 Nicotine dependence, unspecified, uncomplicated; X19.XXXA Contact with other heat and hot substances, initial encounter; Y99.0 Civilian activity done for income or pay; Z23 Encounter for immunization
CPT/HCPCS: 90471; 90715; 96372; 99283; 99284

== ENCOUNTER 2022-07-13 20:08 | Emergency (ER) | payer SELFPAY ==
[2022-07-13 20:09] VITALS: BP 144/81; PULSE 86; RESP 17; TEMP 36.9; O2SAT 100; BMI 25.0
[2022-07-13 20:12] VITALS: BP 144/81; PULSE 90; RESP 18; O2SAT 100
[2022-07-13 20:30] VITALS: BP 142/74; PULSE 88; RESP 18; O2SAT 99
--- NOTE | 2022-07-13 21:09 | HMH.EDSKAF ---
Discharge Plan Disposition Patient Disposition: Home, Self-Care Prescriptions Prescriptions: New terbinafine HCl 250 mg tablet 250 mg PO DAILY 14 Days Qty: 14 0RF Referrals Follow up/Referrals: Provider,Referral, [Primary Care Provider] - See instructions Antoinette Lugo DPM [Staff Physician] - See instructions Clinical Impressions Clinical Impression: Tinea pedis Instructions Patient Instructions: DI for Athlete's Foot Discharge ED Provider: Prasanth (ED)Nick Skin/Abscess/FB HPI General Chief complaint: Skin/Abscess/Foreign Body Stated complaint: left foot,Peeling and burning Time Seen by Provider: 07/13/22 21:09 Mode of Arrival: Ambulatory Source of Information: Patient, Significant Other and Medical Record Limitations: No Limitations Description of Symptoms (Recalled from ER Triage Doc. by RN): 22 M presents from home with c/o left foot peeling and itching on the bottom of his toes and in between his toes. This started approximately 2 months ago and has gotten worse. Patient denies fever, chills, numbness, tingling. Has not tried any OTC medications History of Present Illness HPI narrative: pt with lt foot rash with itching and has bottom of foot and between toes over the last few weeks - no diabetes MD complaint: rash Onset (ago): week(s) Location: L foot Severity: moderate Consistency: constant Associated symptoms: denies other symptoms Related Data Previous Rx's Medication Instructions Recorded terbinafine HCl 250 mg tablet 250 mg PO DAILY 2 weeks #14 tabs 07/13/22 Allergies Allergy/AdvReac Type Severity Reaction Status Date / Time No Known Allergies Allergy Verified 04/06/22 13:24 [facility] Disclaimer: The information contained in this section may have been updated after the patient was seen, as this information can be updated by other users. Medical History Anxiety Family History Other No significant family history Social History Smoking Status: Current every day smoker alcohol intake: never counseling provided: none current occupational status: employed Travel in the last 8 weeks: None ROS Obtained: Yes All systems reviewed & no additional complaints except as documented Physical Exam General General appearance: alert Head Head exam: normocephalic Eye Eye exam: Present PERRL and EOMI ENT ENT exam: Present mucous membranes moist Neck Neck exam: Present trachea midline Respiratory Respiratory exam: Absent respiratory distress Cardiovascular Cardiovascular exam: Present regular rate Extremities Exam Extremities exam: Present full ROM Neurological Exam Neurological exam: Present alert, oriented X3 and CN II-XII intact; Absent motor sensory deficit Psychiatric Psychiatric exam: Present normal affect Skin Skin exam: Present rash (rash lt foot consistent with tinea ) Medical Decision Making Medical Records Medical records reviewed: Yes I reviewed the patient's medical records. Pj Inquiry Pt receiving controlled substance: No Vital Signs: 07/13/22 20:09 07/13/22 20:12 07/13/22 20:30 Temperature 98.4 F Temperature Source Oral Pulse Rate 90 88 Pulse Rate [Left] 86 Respiratory Rate 17 18 18 Blood Pressure 144/81 H 142/74 H Blood Pressure [Right Arm] 144/81 H Blood Pressure Mean 94 103 Blood Pressure Mean [Right Arm] 102 Blood Pressure Source [Right Arm] Automatic Cuff Blood Pressure Position [Right Arm] Sitting 02 Sat by Pulse Oximetry 100 100 99 Oxygen Delivery Method Room Air Medical Decision Narrative: pt with prob tinea pedis and will give trial of meds and see pcp and podiatry Critical Care Time Critical Care Time Critical Care Time: No Attestation: On 07/13/22, the high probability of a clinically significant, sudden or life threatening d
[2022-07-13 21:23] VITALS: BP 142/74; PULSE 88; RESP 18; TEMP 37.1; O2SAT 99
== END 2022-07-13 21:28 | disposition home or self-care (01) ==
PROVIDERS: Emergency Provider Emergency Medicine
DX: B35.3 Tinea pedis (principal); F17.200 Nicotine dependence, unspecified, uncomplicated
CPT/HCPCS: 99283; 99284

== ENCOUNTER 2022-11-18 21:01 | Emergency (ER) | payer BC, SELFPAY ==
[2022-11-18 21:04] VITALS: BP 136/64; PULSE 60; RESP 16; TEMP 37.1; O2SAT 98; BMI 23.1
[2022-11-18 21:30] VITALS: BP 136/68; PULSE 62; O2SAT 99
--- NOTE | 2022-11-18 21:47 | CT_ITS ---
PROCEDURE INFORMATION: Exam: CT Thoracic Spine Without Contrast Exam date and time: 11/18/2022 10:08 PM Age: 22 years old Clinical indication: Pain in thoracic spine; Additional info: Mid/low back pain, acute, midline, weightlifting TECHNIQUE: Imaging protocol: Computed tomography of the thoracic spine without contrast. Radiation optimization: All CT scans at this facility use at least one of these dose optimization techniques: automated exposure control; mA and/or kV adjustment per patient size (includes targeted exams where dose is matched to clinical indication); or iterative reconstruction. REPORTING DATA: Count of CT and Cardiac NM exams in prior 12 months: This patient has received 0 known CTs and 0 known cardiac nuclear medicine studies in the 12 months prior to the current study. COMPARISON: No relevant prior studies available. FINDINGS: Bones/joints: No acute fracture or malalignment. Multi-level disc space narrowing with degenerative endplate changes and multiple Schmorl's nodes in the lower thoracic spine. Soft tissues: Unremarkable. IMPRESSION: 1. No evidence of acute osseous abnormality in the thoracic spine. 2. Multi-level disc space narrowing with degenerative endplate changes and multiple Schmorl's nodes in the lower thoracic spine. 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
--- NOTE | 2022-11-18 21:47 | CT_ITS ---
PROCEDURE INFORMATION: Exam: CT Lumbar Spine Without Contrast Exam date and time: 11/18/2022 10:11 PM Age: 22 years old Clinical indication: Low back pain; Additional info: Mid/low back pain, acute, midline, weightlifting TECHNIQUE: Imaging protocol: Computed tomography of the lumbar spine without contrast. Radiation optimization: All CT scans at this facility use at least one of these dose optimization techniques: automated exposure control; mA and/or kV adjustment per patient size (includes targeted exams where dose is matched to clinical indication); or iterative reconstruction. REPORTING DATA: Count of CT and Cardiac NM exams in prior 12 months: This patient has received 0 known CTs and 0 known cardiac nuclear medicine studies in the 12 months prior to the current study. COMPARISON: CT THORACIC SPINE WO CON 11/18/2022 10:08 PM FINDINGS: Bones/joints: Standard lumbosacral anatomy with 5 aeb-izn-zkfwqii lumbar type vertebral bodies. No evidence of acute fracture or malalignment. No pars defects. Soft tissues: Unremarkable. IMPRESSION: No evidence of acute osseous abnormality in the lumbar spine.
--- NOTE | 2022-11-18 21:53 | HMH.EDGENADL ---
Discharge Plan Disposition Patient Disposition: Home, Self-Care Condition: Good Prescriptions Prescriptions: New methocarbamol 500 mg tablet 500 mg PO Q8H PRN (Reason: pain) Qty: 20 0RF naproxen 500 mg tablet 500 mg PO BID PRN (Reason: pain) Qty: 20 0RF Referrals Follow up/Referrals: Provider,Referral, [Primary Care Provider] - See instructions Activity Restrictions/Add. Instructions Additional Instructions/Restrictions: You were evaluated in the emergency department today. Please follow-up closely with your primary care provider. 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 Also take Tylenol in addition to these. Return to the emergency department for new or worsening symptoms. Clinical Impressions Clinical Impression: Low back strain Stand Alone Forms Stand Alone Forms: Work/School Release Instructions Patient Instructions: DI for Low Back Pain Discharge ED Provider: Ruthann Jones General Adult HPI General Chief complaint: Back Pain/Injury Stated complaint: back pain Time Seen by Provider: 11/18/22 21:42 Mode of Arrival: Ambulatory Source of Information: Patient Limitations: No Limitations Description of Symptoms (Recalled from ER Triage Doc. by RN): Patient was lifting weight at the gym yesterday, heard his back pop, now having pain in back, difficult breathing. History of Present Illness HPI narrative: This patient is a 22-year-old male who denies significant past medical history presenting to the emergency department for evaluation with concern for back pain. He states that a couple days ago, he was at the gym lifting heavy weights. He states that he was lifting 400 pounds and then straight lifting 145 pounds. He said that he felt a pop and immediate pain in his back and fell to the ground. Since then, he has had severe midline mid to low back pain. No numbness, tingling, saddle anesthesia, incontinence, or other concerns. The pain does not radiate. Nothing seems to make it better. It is worse with breathing and movement. Related Data Previous Rx's Medication Instructions Recorded methocarbamol 500 mg tablet 500 mg PO Q8H PRN pain #20 tabs 11/18/22 naproxen 500 mg tablet 500 mg PO BID PRN pain #20 tabs 11/18/22 Allergies Allergy/AdvReac Type Severity Reaction Status Date / Time No Known Allergies Allergy Verified 04/06/22 13:24 [facility] Disclaimer: The information contained in this section may have been updated after the patient was seen, as this information can be updated by other users. Medical History Anxiety Family History Other No significant family history Social History Smoking Status: Current every day smoker alcohol intake: never counseling provided: none current occupational status: employed Travel in the last 8 weeks: None ROS Obtained: Yes All systems reviewed & no additional complaints except as documented Physical Exam General General appearance: alert and in no apparent distress Head Head exam: atraumatic and normocephalic Eye Eye exam: Present normal appearance, PERRL and EOMI ENT ENT exam: Present normal exam, normal oropharynx, mucous membranes moist and normal external ear exam Neck Neck exam: Present normal inspection, full ROM and trachea midline; Absent tenderness Chest Chest inspection: Present normal inspection and symmetric chest wall rise; Absent tenderness Respiratory Respiratory exam: Present normal lung sounds bilaterally; Absent respiratory distress, wheezes, stridor or accessory muscle use Cardiovascular Cardiovascular exam: Present regular rate and normal rhythm Abdominal Exam Abdominal exam: Present soft; Absent distention, tenderness or guarding Extremities Exam Extremities exam: Present normal inspection, full
[2022-11-18 22:19] VITALS: BP 130/51; PULSE 55; O2SAT 97
[2022-11-18 23:15] VITALS: BP 134/72; PULSE 59; RESP 16; TEMP 37.1; O2SAT 99
== END 2022-11-18 23:22 | disposition home or self-care (01) ==
PROVIDERS: Emergency Provider Emergency Medicine
DX: S33.9XXA Sprain of unspecified parts of lumbar spine and pelvis, initial encounter (principal); X50.0XXA Overexertion from strenuous movement or load, initial encounter; F41.9 Anxiety disorder, unspecified; F17.200 Nicotine dependence, unspecified, uncomplicated
CPT/HCPCS: 72128; 72131; 96374; 99285

== ENCOUNTER 2022-11-20 23:45 | Emergency (ER) | payer SELFPAY ==
[2022-11-20 23:47] VITALS: BP 141/79; PULSE 59; RESP 16; TEMP 36.6; O2SAT 100; BMI 23.1
[2022-11-21 00:01] VITALS: BP 141/79; PULSE 56; O2SAT 98
[2022-11-21 00:58] VITALS: BP 142/85; PULSE 69; RESP 16; TEMP 36.7; O2SAT 98
--- NOTE | 2022-11-21 00:58 | HMH.EDGENADL ---
Discharge Plan Disposition Patient Disposition: Home, Self-Care Condition: Good Prescriptions Prescriptions: New cyclobenzaprine 10 mg tablet 10 mg PO BID PRN (Reason: muscle spasm) Qty: 20 0RF lidocaine 5 % adhesive patch,medicated 1 patch topical DAILY PRN (Reason: pain) Qty: 30 0RF Rx Instructions: leave on most painful area for up to 12 hrs No Action methocarbamol 500 mg tablet 500 mg PO Q8H PRN (Reason: pain) Qty: 20 0RF naproxen 500 mg tablet 500 mg PO BID PRN (Reason: pain) Qty: 20 0RF Referrals Follow up/Referrals: Provider,Referral, MD [Primary Care Provider] - See instructions Activity Restrictions/Add. Instructions Additional Instructions/Restrictions: Please follow-up with your primary care provider. Please return to the emergency department if you develop any new or worsening symptoms or become concerned for your health. Please take Tylenol and ibuprofen as needed for pain. Please take either Robaxin or cyclobenzaprine as a muscle relaxer. Please use lidocaine patches and hot and cold packs as needed for pain. Please refrain from excessive bending or twisting, please refrain from lifting any heavy loads until your symptoms have sustained improvement or you are cleared by your primary care doctor. Patient was seen on 11/18 and 11/20. Patient was medically unable to work between those dates. Clinical Impressions Clinical Impression: Low back strain, Degenerative disc disease, Acute herniated disc Instructions Patient Instructions: DI for Low Back Pain Discharge ED Provider: Delfino Salcedo Adult HPI General Chief complaint: Back Pain/Injury Stated complaint: Lower back pain lifting weights Time Seen by Provider: 11/21/22 00:15 Mode of Arrival: Ambulatory Source of Information: Patient Limitations: No Limitations Description of Symptoms (Recalled from ER Triage Doc. by RN): pt reports being seen 2 days ago after weight lifting and hurting back, pt states the Naproxen and muscle relaxer is no help. History of Present Illness HPI narrative: 22-year-old male reportedly previously presents with persistent severe low back pain. He was seen here 2 days ago after feeling a pop and associated pain in his low back while weightlifting. He had CT imaging performed which showed findings concerning for juvenile degenerative disc disease. No obvious fracture or dislocation at that time. Patient reports no weakness or numbness, reports primarily midline lumbar back pain. Specifically denies any urinary retention, urinary incontinence, bowel incontinence, genital anesthesia. No history of IV drug use. Patient has had no other injuries since he was seen 2 days ago. He has been taking naproxen and muscle laxer at home without improvement., Related Data Previous Rx's Medication Instructions Recorded methocarbamol 500 mg tablet 500 mg PO Q8H PRN pain #20 tabs 11/18/22 naproxen 500 mg tablet 500 mg PO BID PRN pain #20 tabs 11/18/22 cyclobenzaprine 10 mg tablet 10 mg PO BID PRN muscle spasm #20 11/21/22 tabs lidocaine 5 % topical patch 1 patch topical DAILY PRN pain #30 11/21/22 ea Allergies Allergy/AdvReac Type Severity Reaction Status Date / Time No Known Allergies Allergy Verified 04/06/22 13:24 [facility] Disclaimer: The information contained in this section may have been updated after the patient was seen, as this information can be updated by other users. Medical History Anxiety Family History Other No significant family history Social History Smoking Status: Current every day smoker alcohol intake: never counseling provided: none current occupational status: employed Travel in the last 8 weeks: None ROS Obtained: Yes All systems reviewed & no additional complaints except as docum
== END 2022-11-21 00:59 | disposition home or self-care (01) ==
PROVIDERS: Emergency Provider Emergency Medicine
DX: S39.012A Strain of muscle, fascia and tendon of lower back, initial encounter (principal); F41.9 Anxiety disorder, unspecified; F17.200 Nicotine dependence, unspecified, uncomplicated; X50.0XXA Overexertion from strenuous movement or load, initial encounter
CPT/HCPCS: 99283

== ENCOUNTER 2024-01-29 00:42 | Emergency (ER) | payer BC, SELFPAY ==
[2024-01-29 00:43] VITALS: BP 145/86; PULSE 87; RESP 16; TEMP 36.8; O2SAT 100; BMI 23.1
--- NOTE | 2024-01-29 01:16 | CT_ITS ---
PROCEDURE INFORMATION: Exam: CT Head Without Contrast Exam date and time: 01/29/2024 1:28 AM Age: 23 years old Clinical indication: Dizziness; Additional info: Daily vomiting, dizzy, worse with laying down TECHNIQUE: Imaging protocol: Computed tomography of the head without contrast. Radiation optimization: All CT scans at this facility use at least one of these dose optimization techniques: automated exposure control; mA and/or kV adjustment per patient size (includes targeted exams where dose is matched to clinical indication); or iterative reconstruction. COMPARISON: No relevant prior studies available. FINDINGS: Brain: No evidence of acute intracranial hemorrhage. Mild effacement of the sulci can be a normal variant or represent mild brain edema. Clinical correlation is recommended. Unremarkable white matter. No mass effect. Cerebral ventricles: No ventriculomegaly. Paranasal sinuses: Minimal bubbly secretions in the right maxillary sinus. Mild opacification in the right ethmoid air cells. Mild mucosal thickening in the remaining paranasal sinuses. The nasal septum is slightly deviated to the left. Mastoid air cells: Visualized mastoid air cells are well aerated. Bones: Unremarkable. No acute fracture. Soft tissues: Unremarkable. IMPRESSION: 1. No evidence of acute intracranial hemorrhage, mass effect, or midline shift. 2. Mild effacement of the sulci can be a normal variant or represent mild brain edema, in the appropriate clinical setting. Clinical correlation is recommended. 3. MRI of the brain without and with contrast is recommended for further evaluation. 4. Paranasal sinus disease as outlined.
--- NOTE | 2024-01-29 01:17 | ED_ITS ---
Discharge Plan Disposition Patient Disposition: Home, Self-Care Condition: Good Prescriptions Prescriptions: New ondansetron HCl 4 mg tablet 4 mg PO Q8H PRN (Reason: nausea and vomiting) 5 Days Qty: 30 0RF No Action methocarbamol 500 mg tablet 500 mg PO Q8H PRN (Reason: pain) Qty: 20 0RF naproxen 500 mg tablet 500 mg PO BID PRN (Reason: pain) Qty: 20 0RF cyclobenzaprine 10 mg tablet 10 mg PO BID PRN (Reason: muscle spasm) Qty: 20 0RF lidocaine 5 % adhesive patch,medicated 1 patch topical DAILY PRN (Reason: pain) Qty: 30 0RF Rx Instructions: leave on most painful area for up to 12 hrs Referrals Follow up/Referrals: Provider,Referral, MD [Primary Care Provider] - See instructions Activity Restrictions/Add. Instructions Additional Instructions/Restrictions: Please establish care with PCP for further assessment. Please take Zofran as needed for nausea vomiting. If there is something abnormal on your CT scan we will call you. If your symptoms persist or worsen you may need an MRI or other evaluation. Clinical Impressions Clinical Impression: Abnormal computed tomography of head, Vomiting Stand Alone Forms Stand Alone Forms: Work/School Release Instructions Patient Instructions: DI for Diarrhea and Traveler's Diarrhea -- Adult, DI for Diarrhea and Traveler's Diarrhea -- Child, DI for Nausea -- Adult, DI for Nausea -- Child Print Language Print Language: Citizen Of [place] Discharge ED Provider: Delfino Salcedo General Adult HPI General Chief complaint: Nausea/Vomiting/Diarrhea Stated complaint: nausea, vomiting, rash sides Time Seen by Provider: 01/29/24 00:58 Mode of Arrival: Ambulatory Source of Information: Patient Limitations: No Limitations Description of Symptoms (Recalled from ER Triage Doc. by RN): Pt presents to ED for N/V and a rash. Pt states he gets nauseous and vomits once in the morning and once at night. Pt also states he has a rash all over his back and he's using calamine lotion for that. Pt states he may be anxious about his son'e due date. He just feels like something is off. Pt is A&O*4, VSS, and family is bedside. History of Present Illness HPI narrative: 23-year-old male without significant past medical history presents for new daily nausea and vomiting. He reports symptoms are worse in the morning and worse when he lays down at night. He gets nauseous and vomits once. It has been going on for about a week. He reports that he sometimes gets blurry vision, but his vision is not currently blurry. He reports that he sometimes get dizzy and feels like the room spins but not currently. He denies any ear pain or tinnitus, denies any recent fever or illness. Denies any recent head trauma. Denies having any headaches. He is not on any medications, vapes tobacco he does not use any drugs. He reports he is somewhat anxious about the upcoming of his child. He has had some diarrhea lately as well. He reports that he is not as hungry as normal, but he does not feel like the nausea or vomiting is associated with when he eats. He denies any abdominal pain. Related Data Previous Rx's ?Medication ?Instructions ?Recorded methocarbamol 500 mg tablet 500 mg PO Q8H PRN pain #20 tabs 11/18/22 naproxen 500 mg tablet 500 mg PO BID PRN pain #20 tabs 11/18/22 cyclobenzaprine 10 mg tablet 10 mg PO BID PRN muscle spasm #20 11/21/22 tabs lidocaine 5 % topical patch 1 patch topical DAILY PRN pain #30 11/21/22 ea ondansetron HCl 4 mg tablet 4 mg PO Q8H PRN nausea and 01/29/24 vomiting 5 days #30 tabs Allergies Allergy/AdvReac Type Severity Reaction Status Date / Time No Known Allergies Allergy Verified 04/06/22 13:24 [facility] Disclaimer: The information contained in this section may have been updated after the patient was seen, as this information can be updated by other users. Medical History Anxiety Family History Other No significant family history Social History Smoking Status: Current every day smoker alcohol intake: never counseling provided: none current occupational status: employed Other Medical History Have you received the Flu Vaccine for this season: No Have you received the Pneumonia Vaccine: No ROS Obtained: Yes All systems reviewed & no additional complaints except as documented Physical Exam General General appearance: alert and in no apparent distress Head Head exam: atraumatic and normocephalic Eye Eye exam: Present normal appearance, PERRL and EOMI (Smooth tracking without nystagmus) ENT ENT exam: Present normal oropharynx and normal external ear exam Neck Neck exam: Present normal inspection and full ROM Chest Chest inspection: Present normal inspection and symmetric chest wall rise; Absent tenderness Respiratory Respiratory exam: Present normal lung sounds bilaterally; Absent respiratory distress Cardiovascular Cardiovascular exam: Present regular rate and normal rhythm Abdominal Exam Abdominal exam: Present soft; Absent distention, tenderness or guarding Extremities Exam Extremities exam: Present normal inspection; Absent edema or joint swelling Back Exam Back exam: Present normal inspection; Absent tenderness Neurological Exam Neurological exam: Present alert, oriented X3, CN II-XII intact, normal gait and other (Normal cerebellar exam); Absent motor sensory deficit Psychiatric Psychiatric exam: Present normal affect and normal mood Skin Skin exam: Present warm, dry and normal color Lymphatic Lymphatic Findings: no adenopathy Medical Decision Making Medical Records Medical records reviewed: Yes I reviewed the patient's medical records. Screening: Per USPSTF and CDC recommendations, given the prevalence of disease in our region, it is our hospital?s policy to screen for HIV and viral Hepatitis for all patients aged 18 and over and those with ongoing risk factors. Pj Inquiry Pt receiving controlled substance: No Pj was queried for this patient: No Vital Signs: 01/29/24 00:43 01/29/24 01:38 Temperature 98.3 F 98.3 F Temperature Source Oral Tympanic Pulse Rate 63 Pulse Rate [Left] 87 Respiratory Rate 16 18 Blood Pressure 131/70 Blood Pressure [Right Arm] 145/86 H Blood Pressure Mean [Right Arm] 105 02 Sat by Pulse Oximetry 100 Oxygen Delivery Method Room Air Room Air Lab Data Lab results reviewed: Yes I reviewed the patient's lab results. Lab Results 01/29/24 00:52: WBC 8.9, RBC 5.14, Hgb 15.4, Hct 43.7, MCV 85.1, MCH 30.0, MCHC 35.3, RDW 13.3, Plt Count 190, MPV 9.2, Neut % (Auto) 69.5, Lymph % (Auto) 22.1, [place] % (Auto) 6.3, Eos % (Auto) 1.2, Baso % (Auto) 0.9, Neut # (Auto) 6.2, Lymph # (Auto) 2.0, [place] # (Auto) 0.6, Eos # (Auto) 0.1, Baso # (Auto) 0.1, Sodium 140, Potassium 3.6, Chloride 100, Carbon Dioxide 29, Anion Gap 14.6, BUN 11, Creatinine 1.00, Estimated Creat Clear 135, Estimated GFR 92, Est GFR ( Amer) 111, Glucose 83, Calcium 9.7, Total Bilirubin 1.2, AST 27, ALT 23, Alkaline Phosphatase 48, Total Protein 7.8, Albumin 4.7, Globulin 3.1, Albumin/Globulin Ratio 1.5, HIV 1&2 Antibody Rapid Nonreactive 01/29/24 00:52 01/29/24 00:52 Orders (Tests/Meds): ED MEDICATIONS Discontinued Medications Generic Name Dose Route Start Last Admin Trade Name Freq PRN Reason Stop Dose Admin Ondansetron HCl 4 mg 01/29/24 01:16 01/29/24 01:34 Ondansetron 4mg/2ml Vial IV 01/29/24 01:17 4 mg ONCE ONE Administration ORDERS Category Date Time Status CT head/brain wo con Stat Cat Scan 01/29/24 01:16 Completed CBC w/Auto Diff [Complete Blood Count Auto Diff] Stat Lab 01/29/24 00:52 Completed CMP [Comprehensive Metabolic Panel] Stat Lab 01/29/24 00:52 Completed HIV (1&2) Antibody Rapid Stat Lab 01/29/24 00:52 Completed Hep C Ab with Reflex to RNA Stat Lab 01/29/24 00:52 Received Medical Decision Narrative: 23-year-old male without significant past medical history presents with 1 week of worsening daily nausea and vomiting, worse in the morning and worse at night. Occasional dizziness. No headaches. History was obtained via interactive discussion with patient. On arrival, patient is [afebrile, hemodynamically stable, satting appropriately, alert, oriented x4, GCS 15], moving all extremities spontaneously. Full physical exam performed and significant for no neurologic deficits on exam Differential includes but is not limited to intracranial lesion, inner ear pathology, gastroenteritis, GI pathology. Patient was given Zofran for symptomatic management and correction of underlying abnormalities. Workup initiated including CT head, CBC CMP. On re-evaluation, patient [remains afebrile, HD stable.] Laboratory workup independently interpreted by me and significant for no significant electrolyte derangement, normal renal function, normal hemoglobin. 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 After patient left his CT report returned and it shows mild effacement of the sulci which could be normal variant or evidence of intracranial lesion. Radiology recommends MRI with without contrast to further assess. I called and spoke with the patient and reported these findings the patient and encouraged to return as soon as possible for further assessment. Patient reports that he will return. Procedures Risk/Benefits of Procedure(s) Were Explained: Yes Critical Care Critical Care Time Critical Care Time: No
[2024-01-29 01:24] LABS: Basophils # 0.1 K/mm3 (0-0.2); Basophils % 0.9 % (0.1-2.0); Eosinophils # 0.1 K/mm3 (0.0-0.4); Eosinophils % 1.2 % (0.1-12.0); Hematocrit 43.7 % (42.0-52.0); Hemoglobin 15.4 g/dL (14.1-18.0); Lymphocytes % 22.1 % (10-50); Mean Corpuscular HGB Conc 35.3 g/dL (31.8-35.4); Mean Corpuscular Volume 85.1 fl (80-94); Mean Platelet Volume 9.2 fl (7.4-10.4); Monocytes # 0.6 K/mm3 (0.1-1.0); Monocytes % 6.3 % (1.7-9.3); Neutrophils # 6.2 K/mm3 (1.8-7.8); Neutrophils % 69.5 % (37.0-80.0); Platelet Count 190 K/mm3 (142-424); Red Blood Count 5.14 M/mm3 (4.60-6.20); Red Cell Distribution Width 13.3 % (11.5-17.5); White Blood Count 8.9 K/mm3 (4.8-10.8)
[2024-01-29 01:25] LABS: Albumin Level 4.7 g/dl (3.5-5.0); Chloride 100 mmol/L (98-107); Potassium 3.6 mmoL/L (3.5-5.1); Sodium 140 mmol/L (136-145)
[2024-01-29 01:28] LABS: Alanine Aminotransferase 23 U/L (12-78); Albumin/Globulin Ratio 1.5 (1.1-1.8); Alkaline Phosphatase 48 U/L (38-126); Anion Gap 14.6 mEq/L (5-15); Aspartate Amino Transferase 27 U/L (17-59); Bilirubin,Total 1.2 mg/dl (0.2-1.3); Blood Urea Nitrogen 11 mg/dl (9-20); Carbon Dioxide 29 mmol/L (22.0-30.0); Creatinine Clearance Estimated 135 mL/min (50-200); Estimated Glomerular Filt Rate 92 ml/min (>60); GFR (African American) 111 ML/MIN (>60); Globulin 3.1 g/dL (1.3-3.2); Total Protein,Serum 7.8 g/dl (6.3-8.2)
[2024-01-29 01:29] LABS: Calcium 9.7 mg/dl (8.4-10.2); Glucose 83 mg/dl (74-100)
[2024-01-29] MEDS: ONDANSETRON 4MG/2ML VIAL 4 MG IV (01:34)
[2024-01-29 01:38] VITALS: BP 131/70; PULSE 63; RESP 18; TEMP 36.8; O2SAT 98
[2024-01-29 01:45] LABS: HIV (1&2) Antibody Rapid NONREACTIVE (NONREACTIVE)
[2024-01-30 09:16] LABS: HCV Ab Non Reactive (Non Reactive)
== END 2024-01-29 01:42 | disposition home or self-care (01) ==
PROVIDERS: Emergency Provider Emergency Medicine
DX: R93.0 Abnormal findings on diagnostic imaging of skull and head, not elsewhere classified (principal); R11.2 Nausea with vomiting, unspecified; R21 Rash and other nonspecific skin eruption
CPT/HCPCS: 70450; 80053; 85025; 86803; 87389; 96374; 99284; J2405

== ENCOUNTER 2024-01-29 09:21 | Emergency (ER) | payer BC, SELFPAY ==
[2024-01-29 09:23] VITALS: BP 132/73; PULSE 77; RESP 14; TEMP 36.6; O2SAT 100; BMI 23.1
--- NOTE | 2024-01-29 09:45 | PC.NURSE ---
HS called MRI to see if they would be able to fit the pt in the schedule today. They are able to scan him at approximately 1300.
[2024-01-29 09:48] VITALS: BMI 23.1
--- NOTE | 2024-01-29 09:53 | MR_ITS ---
FINAL REPORT TECHNIQUE: Multiplanar and multisequence imaging of the brain was obtained before and after contrast administration. CLINICAL HISTORY: edema concern on CT, FONG and nausea 17 ml prohance COMPARISON: CT head 12 hours prior FINDINGS: There is no mass effect or midline shift. Signal intensity is normal. No hydrocephalus. The cerebellum and brainstem have an unremarkable appearance. There are no areas of restricted diffusion on diffusion weighted images to suggest acute infarct. No evidence of hemorrhage. Soft tissues are without acute abnormality. No pathologic contrast enhancement is identified. IMPRESSION: No acute intracranial abnormality and no pathologic contrast enhancement. Reviewed, Interpreted and Dictated by Iona López MD Transcribed by Isabel Mott Authenticated and [facility]
--- NOTE | 2024-01-29 09:54 | PC.NURSE ---
HS and myself talked to the pt. He agrees to stay in the ER and wait for the MRI.
--- NOTE | 2024-01-29 09:57 | PC.NURSE ---
HS spoke with Lila in case management. The pt does not need a pre-authorization because the head CT from earlier today recommends MRI due to findings.
[2024-01-29 10:00] VITALS: BP 147/93; PULSE 72; O2SAT 99
--- NOTE | 2024-01-29 10:00 | PC.NURSE ---
PT rounds. pt was taken a warm blanket, pillow, and the lights were dimmed. pt has no new complaints. no needs voiced. call de leon in reach.
[2024-01-29] MEDS: KETOROLAC 30MG/ML VIAL 15 MG IV (10:08)
[2024-01-29] MEDS: DEXAMETHASONE 4MG/ML 1ML VIAL 10 MG IV (10:08)
[2024-01-29] MEDS: diphenhydrAMINE 50MG/ML VIAL 25 MG IV (10:08)
[2024-01-29] MEDS: PROCHLORPERAZINE 10MG/2ML VIAL 10 MG IV (10:09)
[2024-01-29] MEDS: ACETAMINOPHEN 500MG TAB 1000 MG PO (10:09)
[2024-01-29] MEDS: SODIUM CHLORIDE 0.9% 10ML FLUSH SYRINGE 10 ML IV (10:09)
--- NOTE | 2024-01-29 10:13 | ED_ITS ---
Discharge Plan Prescriptions Prescriptions: No Action methocarbamol 500 mg tablet 500 mg PO Q8H PRN (Reason: pain) Qty: 20 0RF naproxen 500 mg tablet 500 mg PO BID PRN (Reason: pain) Qty: 20 0RF cyclobenzaprine 10 mg tablet 10 mg PO BID PRN (Reason: muscle spasm) Qty: 20 0RF lidocaine 5 % adhesive patch,medicated 1 patch topical DAILY PRN (Reason: pain) Qty: 30 0RF Rx Instructions: leave on most painful area for up to 12 hrs ondansetron HCl 4 mg tablet 4 mg PO Q8H PRN (Reason: nausea and vomiting) 5 Days Qty: 30 0RF Referrals Follow up/Referrals: Provider,Referral, MD [Primary Care Provider] - See instructions Clinical Impressions Clinical Impression: Left against medical advice Print Language Print Language: Russian Discharge ED Provider: Alex Rubin General Adult HPI General Chief complaint: Neuro Symptoms/Deficit Stated complaint: swelling of the brain Time Seen by Provider: 01/29/24 09:28 Mode of Arrival: Ambulatory Source of Information: Patient Limitations: No Limitations Description of Symptoms (Recalled from ER Triage Doc. by RN): pt was seen here early this morning and had a CT of his brain. He was unable to wait for the results. After d/c Dr. Salcedo called the pt and asked him to return. the CT showed mild effacement of sulci and recommended a MRI. pt originally c/o N/V, light headedness, dizziness, eye shaking and an intermittant posterior FONG. The FONG throbs in nature and is a 6/10. pt also reports intermittant blurred vision that correlates to the FONG's. This has been ongoing since 01/20. History of Present Illness HPI narrative: Please note that above description of symptoms, in this electronic medical record under categorization of recalled from ER triage doctor by RN are reflective of an initial nursing assessment, however, is not reflective of my full history and physical exam that was personally taken and clarified. Consequentially, this preceding description of symptoms, which may include the patient's categorized chief complaint in the EMR, do not reflect my personal clinical impression, and the ultimate description of history of present illness and patient stated complaints should be deferred to this section of the note. Unless stated otherwise or congruent with this section of the note, additional signs, symptoms, or incongruence should be interpreted as inaccurate with my clinical impression. Related Data Previous Rx's ?Medication ?Instructions ?Recorded methocarbamol 500 mg tablet 500 mg PO Q8H PRN pain #20 tabs 11/18/22 naproxen 500 mg tablet 500 mg PO BID PRN pain #20 tabs 11/18/22 cyclobenzaprine 10 mg tablet 10 mg PO BID PRN muscle spasm #20 11/21/22 tabs lidocaine 5 % topical patch 1 patch topical DAILY PRN pain #30 11/21/22 ea ondansetron HCl 4 mg tablet 4 mg PO Q8H PRN nausea and 01/29/24 vomiting 5 days #30 tabs Allergies Allergy/AdvReac Type Severity Reaction Status Date / Time No Known Allergies Allergy Verified 01/29/24 10:14 [facility] Disclaimer: The information contained in this section may have been updated after the patient was seen, as this information can be updated by other users. Medical History Anxiety Family History Other No significant family history Social History (Updated 01/29/24 @ 03:09 by Delfino Salcedo MD) Smoking Status: Current every day smoker alcohol intake: never counseling provided: none current occupational status: employed Other Medical History Have you received the Flu Vaccine for this season: No Have you received the Pneumonia Vaccine: No ROS Obtained: Yes All systems reviewed & no additional complaints except as documented Physical Exam General General appearance: alert Head Head exam: atraumatic and normocephalic Eye Eye exam: Present normal appearance, PERRL and EOMI ENT ENT exam: Present normal exam Neck Neck exam: Present normal inspection, full ROM and trachea midline Respiratory Respiratory exam: Present normal lung sounds bilaterally; Absent respiratory distress, wheezes, stridor, accessory muscle use or prolonged expiratory phase Cardiovascular Cardiovascular exam: Present regular rate, normal rhythm and other (Pulses equal symmetric in upper and lower extremities) Abdominal Exam Abdominal exam: Present soft; Absent distention, tenderness, guarding, rebound or pulsatile mass Extremities Exam Extremities exam: Absent edema Neurological Exam Neurological exam: Present alert, oriented X3 and CN II-XII intact; Absent motor sensory deficit Skin Skin exam: Present warm and dry; Absent diaphoresis or erythema Medical Decision Making Medical Records Medical records reviewed: Yes I reviewed the patient's medical records. Screening: Per USPSTF and CDC recommendations, given the prevalence of disease in our region, it is our hospital?s policy to screen for HIV and viral Hepatitis for all patients aged 18 and over and those with ongoing risk factors. Pj Inquiry Pt receiving controlled substance: No Pj was queried for this patient: No Vital Signs: 01/29/24 09:23 01/29/24 10:00 01/29/24 10:29 Temperature 97.9 F Temperature Source Oral Pulse Rate 72 77 Pulse Rate [Left] 77 Respiratory Rate 14 Blood Pressure 147/93 H 112/61 Blood Pressure [Right Arm] 132/73 Blood Pressure Mean Blood Pressure Mean [Right Arm] 92 Blood Pressure Source [Right Arm] Automatic Cuff Blood Pressure Position [Right Arm] Sitting 02 Sat by Pulse Oximetry 100 99 98 Oxygen Delivery Method Room Air 01/29/24 12:18 01/29/24 14:12 Temperature 98 F Temperature Source Pulse Rate 71 Pulse Rate [Left] Respiratory Rate 14 Blood Pressure 100/55 L 119/80 Blood Pressure [Right Arm] Blood Pressure Mean 70 Blood Pressure Mean [Right Arm] Blood Pressure Source [Right Arm] Blood Pressure Position [Right Arm] 02 Sat by Pulse Oximetry Oxygen Delivery Method Orders (Tests/Meds): ED MEDICATIONS Discontinued Medications Generic Name Dose Route Start Last Admin Trade Name Angie PRN Reason Stop Dose Admin Acetaminophen 1,000 mg 01/29/24 09:53 01/29/24 10:09 Acetaminophen 500mg Tab PO 01/29/24 09:54 1,000 mg ONCE ONE Administration Dexamethasone Sodium Phosphate 10 mg 01/29/24 09:53 01/29/24 10:08 Dexamethasone 4mg/Ml 1ml Vial IV 01/29/24 09:54 10 mg ONCE ONE Administration Diphenhydramine HCl 25 mg 01/29/24 09:53 01/29/24 10:08 Diphenhydramine 50mg/Ml Vial IV 01/29/24 09:54 25 mg ONCE ONE Administration Gadoteridol 17 ml 01/29/24 13:53 01/29/24 13:54 Gadoteridol Inj 20ml Syringe IV 01/29/24 13:54 17 ml ONCE ONE Administration Ketorolac Tromethamine 15 mg 01/29/24 09:53 01/29/24 10:08 Ketorolac 30mg/Ml Vial IV 01/29/24 09:54 15 mg ONCE ONE Administration Prochlorperazine Edisylate 10 mg 01/29/24 09:53 01/29/24 10:09 Prochlorperazine 10mg/2ml Vial IV 01/29/24 09:54 10 mg ONCE ONE Administration Sodium Chloride 10 ml 01/29/24 09:49 01/29/24 10:09 Sodium Chloride 0.9% 10ml Flush Syringe IV 02/28/24 09:48 10 ml NEEDED PRN Administration Maintain IV Site Sodium Chloride 10 ml 01/29/24 13:53 01/29/24 13:54 Sodium Chloride 0.9% 10ml Syr (Rad Only) IV 01/29/24 13:54 10 ml ONCE ONE Administration Medical Decision Narrative: 23-year-old male otherwise healthy presenting with concern for brain swelling. Patient states that he has had headache and persistent nausea for the past couple of weeks. Has been taking Pepto-Bismol, Zofran and these have not helped. Came to the emergency department earlier today, 01/28, left prior to imaging results. Was called earlier today, 01/28 and told to return to the emergency department for further evaluation given concern for brain swelling, on CT. Patient states that his headache and dizziness are worse when he is up and moving around, better when he is laying flat with his eyes closed. Not worse in the morning, but states that when he lays down to go to bed at night he gets nauseated and has to get up to vomit. Generally able to sleep throughout the night without getting up to vomit. States that intermittently having blurry vision as well. No double vision. No neurologic deficits otherwise. No fevers or chills, recent sickness, falls, head trauma, or any other concerns. History obtained the patient and chart review. On arrival, very well-appearing. NIHSS 0, neurologically intact. Cardiopulmonary exam normal. Pulses equal and symmetric. Placed on netbackup engineer and pulse ox with initial blood pressure 132/73, pulse rate of 77, afebrile at 97.9 and 100% on room air. Differential includes normal variant, increased intracranial pressure, intracranial mass, intracranial hemorrhage, migraine disorder, less likely stroke or cerebral DVT, among others. Patient given migraine cocktail. Patient was placed in observation beginning at 10 AM in order to obtain MRI, give migraine cocktail and determine need for admission versus home-going. The patient was provided migraine cocktail and MRI while awaiting results. Independent interpretation of results demonstrated normal MRI without pathologic findings. On reevaluation, patient requesting to leave prior to MRI results. Because final read not back, patient was informed he would need to leave AGAINST MEDICAL ADVICE. The patient left AGAINST MEDICAL ADVICE after a thorough discussion of the risks of doing so, including a discussion of potential alternative plans. These risks include but are not limited to clinical decompensation, senior care disability and . The patient appears capable of making this decision. I have advised the patient to immediately return if there are any further problems or if they change their mind about seeking further care. Total observation time 4 hours. Samples And Repairs Preparer disclaimer Much of this encounter note is an electronic training and development head spoken language to printed text. Electronic training and development head of the spoken language may permit errors. Although I have reviewed the note, some errors may still exist. Critical Care Critical Care Time Critical Care Time: No
[2024-01-29 10:29] VITALS: BP 112/61; PULSE 77; O2SAT 98
--- NOTE | 2024-01-29 11:17 | PC.NURSE ---
pt currently talking to someone on the phone. no needs voiced. call de leon in reach.
--- NOTE | 2024-01-29 11:39 | PC.NURSE ---
pt sleeping soundly
[2024-01-29 12:18] VITALS: BP 100/55
--- NOTE | 2024-01-29 12:18 | PC.NURSE ---
I informed Dr. Rubin that the pts BP has been in the 80's systolic while sleeping deeply. Upon waking pt his systolic increased to 100. No new orders received.
--- NOTE | 2024-01-29 12:21 | PC.NURSE ---
I rounded on the pt, he was sleeping deeply. After waking him up he states he is feeling much better. He is currently taking off all of his jewelry. pt denies any metal implants and does not have any metal in his clothing. no needs voiced. call de leon in reach.
--- NOTE | 2024-01-29 12:50 | PC.NURSE ---
pt transported by building trades instructor to [facility]
--- NOTE | 2024-01-29 13:14 | PC.NURSE ---
rounded on patient and the patient is in the MRI at this time
[2024-01-29] MEDS: SODIUM CHLORIDE 0.9% 10ML SYR (RAD ONLY) 10 ML IV (13:54)
[2024-01-29] MEDS: GADOTERIDOL INJ 20ML SYRINGE 17 ML IV (13:54)
--- NOTE | 2024-01-29 14:02 | PC.NURSE ---
Pt came to the nurses station and stated he was not feeling well and is ready to leave. I asked what felt bad, he reported nausea. I told him I could get him something but he states his friend is on the way and he is leaving. I explained to the pt the risks of leaving AMA. He stated he understood and signed AMA paperwork.
[2024-01-29 14:12] VITALS: BP 119/80; PULSE 71; RESP 14; TEMP 36.6; O2SAT 99
== END 2024-01-29 14:14 | disposition left against medical advice (07) ==
PROVIDERS: Emergency Provider Emergency Medicine
DX: R11.2 Nausea with vomiting, unspecified (principal); R42 Dizziness and giddiness; R51.9 Headache, unspecified; H55.89 Other irregular eye movements; H53.10 Unspecified subjective visual disturbances; Z53.29 Procedure and treatment not carried out because of patient's decision for other reasons
CPT/HCPCS: 70553; 96374; 96375; 99285; A9576; J0780; J1100; J1200; J1885

== ENCOUNTER 2024-02-19 05:49 | Emergency (ER) | payer BC, SELFPAY ==
[2024-02-19 05:57] VITALS: BP 140/91; PULSE 66; RESP 16; TEMP 36.8; O2SAT 100; BMI 23.1
--- NOTE | 2024-02-19 05:57 | ED_ITS ---
Discharge Plan Disposition Chief Complaint: Nausea/Vomiting/Diarrhea Prescriptions Prescriptions: No Action methocarbamol 500 mg tablet 500 mg PO Q8H PRN (Reason: pain) Qty: 20 0RF naproxen 500 mg tablet 500 mg PO BID PRN (Reason: pain) Qty: 20 0RF cyclobenzaprine 10 mg tablet 10 mg PO BID PRN (Reason: muscle spasm) Qty: 20 0RF lidocaine 5 % adhesive patch,medicated 1 patch topical DAILY PRN (Reason: pain) Qty: 30 0RF Rx Instructions: leave on most painful area for up to 12 hrs ondansetron HCl 4 mg tablet 4 mg PO Q8H PRN (Reason: nausea and vomiting) 5 Days Qty: 30 0RF Clinical Impressions Clinical Impression: Encounter for medical assessment Stand Alone Forms Stand Alone Forms: Work/School Release Instructions Patient Instructions: DI for Diarrhea and Traveler's Diarrhea -- Adult, DI for Diarrhea and Traveler's Diarrhea -- Child, DI for Nausea -- Adult, DI for Nausea -- Child Print Language Print Language: Portuguese Discharge ED Provider: Delfino Salcedo General Adult HPI General Chief complaint: Nausea/Vomiting/Diarrhea Stated complaint: vomiting, nausea Time Seen by Provider: 02/19/24 05:57 History of Present Illness HPI narrative: Patient reports that he was sick this weekend with vomiting but feels better now but he needs a note for work. Related Data Previous Rx's ?Medication ?Instructions ?Recorded methocarbamol 500 mg tablet 500 mg PO Q8H PRN pain #20 tabs 11/18/22 naproxen 500 mg tablet 500 mg PO BID PRN pain #20 tabs 11/18/22 cyclobenzaprine 10 mg tablet 10 mg PO BID PRN muscle spasm #20 11/21/22 tabs lidocaine 5 % topical patch 1 patch topical DAILY PRN pain #30 11/21/22 ea ondansetron HCl 4 mg tablet 4 mg PO Q8H PRN nausea and 01/29/24 vomiting 5 days #30 tabs Allergies Allergy/AdvReac Type Severity Reaction Status Date / Time No Known Allergies Allergy Verified 01/29/24 10:14 [facility] Disclaimer: The information contained in this section may have been updated after the patient was seen, as this information can be updated by other users. Medical History Anxiety Family History Other No significant family history Social History (Updated 01/29/24 @ 03:09 by Delfino Salcedo MD) Smoking Status: Never smoker alcohol intake: never counseling provided: none current occupational status: employed Travel in the last 8 weeks: None Have you lived/traveled outside [place] in past 30 days?: No Contact w/someone who lives/traveled outside [place] past 30 days?: No Exposure to someone with infectious disease in past 14 days?: No Do you have a fever (greater than 100.4 F or 38 C)?: No Have you tested positive for COVID-19: No Exposed to someone with COVID-19 in past 14 days?: No Do you have a sore throat?: No Do you have a cough?: No Do you have any weakness?: No Do you have any diarrhea?: No Are you experiencing any unusual bleeding?: No Do you have any muscle aches/pain?: No Do you have any abdominal pain?: No Are you experiencing loss of taste or smell?: No Other Medical History Have you received the Flu Vaccine for this season: No Have you received the Pneumonia Vaccine: No ROS Obtained: Yes All systems reviewed & no additional complaints except as documented Physical Exam General General appearance: alert and in no apparent distress Head Head exam: atraumatic and normocephalic Eye Eye exam: Present normal appearance ENT ENT exam: Present normal external ear exam Neck Neck exam: Present normal inspection Chest Chest inspection: Present normal inspection and tenderness Respiratory Respiratory exam: Absent respiratory distress Cardiovascular Cardiovascular exam: Present regular rate and normal rhythm Extremities Exam Extremities exam: Present normal inspection Back Exam Back exam: Present normal inspection Neurological Exam Neurological exam: Present alert and oriented X3; Absent motor sensory deficit Psychiatric Psychiatric exam: Present normal affect and normal mood Skin Skin exam: Present warm, dry and normal color Lymphatic Lymphatic Findings: no adenopathy Medical Decision Making Medical Records Medical records reviewed: Yes I reviewed the patient's medical records. Screening: Per USPSTF and CDC recommendations, given the prevalence of disease in our region, it is our hospital?s policy to screen for HIV and viral Hepatitis for all patients aged 18 and over and those with ongoing risk factors. Jp Inquiry Pt receiving controlled substance: No Pj was queried for this patient: No Vital Signs: 02/19/24 05:57 Temperature 98.2 F Temperature Source Oral Pulse Rate [Right] 66 Respiratory Rate 16 Blood Pressure [Right Arm] 140/91 H Blood Pressure Mean [Right Arm] 107 02 Sat by Pulse Oximetry 100 Oxygen Delivery Method Room Air Lab Data Lab results reviewed: Yes I reviewed the patient's lab results. Medical Decision Narrative: Patient presents to the ER, denies that he has any symptoms but reports that he was vomiting this weekend and that he wants a note for work. A medical screening exam was performed, patient was discharged. Procedures Risk/Benefits of Procedure(s) Were Explained: Yes Critical Care Critical Care Time Critical Care Time: No
[2024-02-19 06:18] VITALS: BP 140/91; PULSE 66; RESP 16; TEMP 36.8; O2SAT 100
== END 2024-02-19 06:19 | disposition home or self-care (01) ==
LOC: ER 06:02
PROVIDERS: Emergency Provider Emergency Medicine
DX: Z00.8 Encounter for other general examination (principal); R11.2 Nausea with vomiting, unspecified
CPT/HCPCS: 99281

== ENCOUNTER 2024-03-07 04:03 | Emergency (ER) | payer BC, SELFPAY ==
[2024-03-07 04:04] VITALS: BP 159/83; PULSE 72; RESP 18; TEMP 36.8; O2SAT 100; BMI 23.1
--- NOTE | 2024-03-07 04:12 | ED_ITS ---
Discharge Plan Disposition Patient Disposition: Home, Self-Care Prescriptions Prescriptions: New promethazine 25 mg tablet 25 mg PO Q6H PRN (Reason: nausea and vomiting) Qty: 20 0RF No Action methocarbamol 500 mg tablet 500 mg PO Q8H PRN (Reason: pain) Qty: 20 0RF naproxen 500 mg tablet 500 mg PO BID PRN (Reason: pain) Qty: 20 0RF cyclobenzaprine 10 mg tablet 10 mg PO BID PRN (Reason: muscle spasm) Qty: 20 0RF lidocaine 5 % adhesive patch,medicated 1 patch topical DAILY PRN (Reason: pain) Qty: 30 0RF Rx Instructions: leave on most painful area for up to 12 hrs ondansetron HCl 4 mg tablet 4 mg PO Q8H PRN (Reason: nausea and vomiting) 5 Days Qty: 30 0RF Referrals Follow up/Referrals: Provider,Referral, MD [Primary Care Provider] - See instructions Activity Restrictions/Add. Instructions Additional Instructions/Restrictions: Please follow-up with your primary care provider. Please return to the emergency department if you develop any new or worsening symptoms or become concerned for your health. Please take Phenergan as needed for nausea and vomiting. Please continue to push liquids. Clinical Impressions Clinical Impression: Gastroenteritis Print Language Print Language: Greenlandic Discharge ED Provider: Delfino Salcedo General Adult HPI General Chief complaint: Nausea/Vomiting/Diarrhea Stated complaint: vomiting, diarrhea Time Seen by Provider: 03/07/24 04:12 History of Present Illness HPI narrative: 23-year-old male without significant past medical history presents for gastroenteritis. He reports that for the last 2 and half days he has been having vomiting and diarrhea. Zofran has not helped at home. No blood in the vomit or stool. Related Data Previous Rx's ?Medication ?Instructions ?Recorded methocarbamol 500 mg tablet 500 mg PO Q8H PRN pain #20 tabs 11/18/22 naproxen 500 mg tablet 500 mg PO BID PRN pain #20 tabs 11/18/22 cyclobenzaprine 10 mg tablet 10 mg PO BID PRN muscle spasm #20 11/21/22 tabs lidocaine 5 % topical patch 1 patch topical DAILY PRN pain #30 11/21/22 ea ondansetron HCl 4 mg tablet 4 mg PO Q8H PRN nausea and 01/29/24 vomiting 5 days #30 tabs promethazine 25 mg tablet 25 mg PO Q6H PRN nausea and 03/07/24 vomiting #20 tabs Allergies Allergy/AdvReac Type Severity Reaction Status Date / Time No Known Allergies Allergy Verified 01/29/24 10:14 [facility] Disclaimer: The information contained in this section may have been updated after the patient was seen, as this information can be updated by other users. Medical History Anxiety Family History Other No significant family history Social History (Updated 01/29/24 @ 03:09 by Delfino Salcedo MD) Smoking Status: Current every day smoker alcohol intake: never counseling provided: none current occupational status: employed Travel in the last 8 weeks: None Have you lived/traveled outside US in past 30 days?: No Contact w/someone who lives/traveled outside US past 30 days?: No Exposure to someone with infectious disease in past 14 days?: No Do you have a fever (greater than 100.4 F or 38 C)?: No Have you tested positive for COVID-19: No Exposed to someone with COVID-19 in past 14 days?: No Do you have a sore throat?: No Do you have a cough?: No Do you have any weakness?: No Do you have any diarrhea?: Yes Are you experiencing any unusual bleeding?: No Do you have any muscle aches/pain?: No Do you have any abdominal pain?: No Are you experiencing loss of taste or smell?: No Other Medical History Have you received the Flu Vaccine for this season: No Have you received the Pneumonia Vaccine: No ROS Obtained: Yes All systems reviewed & no additional complaints except as documented Physical Exam General General appearance: alert and in no apparent distress Head Head exam: atraumatic and normocephalic Eye Eye exam: Present normal appearance, PERRL and EOMI ENT ENT exam: Present normal oropharynx and normal external ear exam Neck Neck exam: Present normal inspection and full ROM Chest Chest inspection: Present normal inspection and symmetric chest wall rise; Absent tenderness Respiratory Respiratory exam: Present normal lung sounds bilaterally; Absent respiratory d istress Cardiovascular Cardiovascular exam: Present regular rate and normal rhythm Abdominal Exam Abdominal exam: Present soft; Absent distention, tenderness or guarding Extremities Exam Extremities exam: Present normal inspection; Absent edema or joint swelling Back Exam Back exam: Present normal inspection; Absent tenderness Neurological Exam Neurological exam: Present alert and oriented X3; Absent motor sensory deficit Psychiatric Psychiatric exam: Present normal affect and normal mood Skin Skin exam: Present warm, dry and normal color Lymphatic Lymphatic Findings: no adenopathy Medical Decision Making Medical Records Medical records reviewed: Yes I reviewed the patient's medical records. Screening: Per USPSTF and CDC recommendations, given the prevalence of disease in our region, it is our hospital?s policy to screen for HIV and viral Hepatitis for all patients aged 18 and over and those with ongoing risk factors. Pj Inquiry Pt receiving controlled substance: No Pj was queried for this patient: No Vital Signs: 03/07/24 04:04 03/07/24 04:20 Temperature 98.3 F 98.3 F Temperature Source Oral Pulse Rate 72 Pulse Rate [Left] 72 Respiratory Rate 18 18 Blood Pressure 159/83 H Blood Pressure [Right Arm] 159/83 H Blood Pressure Mean [Right Arm] 108 02 Sat by Pulse Oximetry 100 Oxygen Delivery Method Room Air Room Air Lab Data Lab results reviewed: Yes I reviewed the patient's lab results. Orders (Tests/Meds): ED MEDICATIONS Discontinued Medications Generic Name Dose Route Start Last Admin Trade Name Freq PRN Reason Stop Dose Admin Promethazine HCl 25 mg 03/07/24 04:16 03/07/24 04:25 Promethazine 25mg Tablet PO 03/07/24 04:17 25 mg ONCE ONE Administration Medical Decision Narrative: 23-year-old male without significant past medical history presents for gastroenteritis. He has been having nausea vomiting diarrhea for the last 2 days. Zofran at home has not helped. This is going around town currently. Frontal diagnosis includes but limited to viral/bacterial gastroenteritis. Dehydration. No evidence of dehydration on exam. Patient was given a dose of Phenergan and discharged with prescription for Phenergan. Return precautions given. Labs and IV fluids were considered but deemed unnecessary given history and exam. Procedures Risk/Benefits of Procedure(s) Were Explained: Yes Critical Care Critical Care Time Critical Care Time: No
[2024-03-07 04:20] VITALS: BP 159/83; PULSE 72; RESP 18; TEMP 36.8; O2SAT 100
[2024-03-07] MEDS: PROMETHAZINE 25MG TABLET 25 MG PO (04:25)
== END 2024-03-07 04:29 | disposition home or self-care (01) ==
PROVIDERS: Emergency Provider Emergency Medicine
DX: K52.9 Noninfective gastroenteritis and colitis, unspecified (principal); R11.0 Nausea
CPT/HCPCS: 99283